=== PATIENT | female | born 2000 | race Caucasian/White ===

== ENCOUNTER 2024-09-24 00:05 | Emergency (ER) | payer OTHER, SELFPAY ==
--- NOTE | ~2024-09-24 | CT_ITS ---
CLINICAL HISTORY: fall, ?HS, ETOH CT head without contrast Comparison: None Findings: No acute intracranial hemorrhage. No midline shift or hydrocephalus. No large arterial territorial infarction by CT. Metal artifact from left nasal piercing. Imaged paranasal sinuses and imaged mastoid air cells are well aerated. No acute skull fracture. IMPRESSION: 1. No acute intracranial abnormality by CT. This document has been electronically signed by: Sunny Ayala MD on 09/24/2024 02:42:45
[2024-09-24 00:13] VITALS: BP 124/86; BP 126/70; PULSE 70; PULSE 72; RESP 16; TEMP 36.5; O2SAT 100; BMI 34.0
--- NOTE | 2024-09-24 00:17 | ECG_ITS ---
Test Reason : ETOH/ ? SYNCOPE Blood Pressure : */* mmHG Vent. Rate : 62 BPM Atrial Rate : 62 BPM P-R Int : 136 ms QRS Dur : 80 ms QT Int : 406 ms P-R-T Axes : 54 37 21 degrees QTcB Int : 412 ms Normal sinus rhythm Normal ECG No previous ECGs available Referred By: Sil Valdez Electronically Signed By: LATONIA DARBY MD
--- NOTE | 2024-09-24 00:18 | ED.ALCOHOL ---
HPI - Alcohol General Chief Complaint: ETOH/Substance Use Stated Complaint: ETOH USE,NAUSEA,H/O CONGENITAL ADRENAL HYPERPLAGIA Time Seen by Provider: 09/24/24 00:08 Source: patient Mode of arrival: ambulatory Limitations: no limitations History of Present Illness ED Provider: rosario jack manpower development specialist manager HPI narrative: Patient is a 24-year-old female who presents to the emergency department via EMS for evaluation. She endorses alcohol use ice 7 beers which is quite a bit for her, complaining of nausea and stomach upset. Evidently boyfriend called 911 as she had fallen from the toilet, uncertain whether there was any head strike syncope. She states ?I just drank way too much?. Evidently boyfriend told EMS that she has drank similar amounts in the past but was concerned as patient has a bit lethargic and more difficult to arouse then he would anticipate. Reports history of congenital adrenal hyperplasia did not take her prednisone today. Related Data Allergies Allergy/AdvReac Type Severity Reaction Status Date / Time No Known Allergies Allergy Verified 09/24/24 00:16 Review of Systems Review of Systems: Yes all other systems are reviewed and are negative [facility] Past Medical History Attestation statement: The following information was validated with the patient. Source: old records reviewed Social History Social History Advance Directives: No Advance Directives Information Provided: Yes Physical Exam ED Vital Signs: Vital Signs - 24 hr 09/24/24 00:13 Temperature 97.7 F Pulse Rate 72 Respiratory Rate 16 Blood Pressure 124/86 Pulse Oximetry 100 Oxygen Delivery Method Room Air BMI result Body Mass Index 34.0 Appearance: Alert.?Oriented to person, place and time. No acute distress.?Normal affect. Head: Normocephalic, atraumatic Eyes: Pupils equal, round and reactive to light.? EOMI. No nystagmus. ENT: Pharynx normal.?? Neck: Normal inspection.? Neck supple.??Full range of motion. No midline cervical spine tenderness, step-offs, deformities CVS: Heart sounds normal. Normal heart rate and rhythm.? Pulses normal.?? Respiratory: No respiratory distress.? Lung sounds clear to auscultation bilaterally?? Abdomen: Soft and non-tender. Normoactive bowel sounds. Skin: Skin warm and dry.? Normal skin color.? ? Extremities: No lower extremity edema.? Neuro: Moves all extremities spontaneously. Sensation intact bilaterally. CN II-XII intact. No focal neuro deficits. Ambulates with slow steady gait. Course Reevaluation(s) Reevaluation #1: CBC reveals a mild leukocytosis of 13,000 no left shift likely reactive in nature no anemia or thrombocytopenia. No electrolyte derangement. No CORNELL. LFTs. high sensitive troponin is unremarkable. Alcohol level of 212. Head CT without acute pathology. She is ambulatory with a associated the gait. Answers questions appropriate. Her boyfriend is at bedside, he is agreeable to transport her home. We discussed worrisome signs and symptoms that would warrant re-evaluation in the emergency department. All questions answered. Stable for discharge Medical Decision Making Medical Decision Making [facility] Narrative: Patient is a 24-year-old female with past medical history of congenital adrenal hyperplasia who presents emergency department via EMS with expressed concern from significant other for potential fall versus syncope in the bathroom from the toilet with the uncertainty of head strike. Patient is acutely intoxicated but she is answering questions appropriately. Reports stomach upset offers no additional physical complaints at this time. She is calm and cooperative. Vital signs are stable. No hypotension. Given ETOH and associated fall obtain CT of the head to exclude ICH, SDH, skull fracture. I suspect that this is likely secondary to her alcohol intoxication, however will obtain serum labs in addition to EKG to evaluate for potential arrhythmia, anemia, electrolyte derangement. Differential Diagnosis Differential Diagnoses: The differential diagnosis associated with the presentation includes (See narrative above and below for further detail) Admission/Observation Consideration of admission/observation: Escalation of care including admission/observation considered Lab Data [facility] Lab Attestation statement: I reviewed the patient's lab results. 09/24/24 00:37 09/24/24 00:37 Labs: Lab Results 09/24/24 Range/Units 00:37 WBC 13.0 H (4.8-10.8) X10*3/uL RBC 4.27 (4.20-5.50) X10*6/uL Hgb 13.0 (12.0-16.0) g/dl Hct 38.3 (37.0-47.0) % MCV 89.7 (80.0-98.0) fL MCH 30.4 (27.0-33.0) pg MCHC 33.9 (31.0-35.0) g/dl RDW 12.3 (11.0-16.0) % Plt Count 325 (160-400) X10*3/uL MPV 10.0 (9.4-12.3) fL Immature Gran % (Auto) 0.2 (0.0-0.4) % Neut % (Auto) 57.0 (45-73) % Lymph % (Auto) 33.9 (20-40) % Woods % (Auto) 7.6 (2-11) % Eos % (Auto) 0.9 (0-4) % Baso % (Auto) 0.4 (0-2) % Lymph # (Auto) 4.4 (1.2-4.9) X10*3/uL Woods # (Auto) 1.0 (0.1-1.2) X10*3/uL Eos # (Auto) 0.1 (0.0-0.4) X10*3/uL Baso # (Auto) 0.1 (0.0-0.2) X10*3/uL Abs Immat Gran (auto) 0.03 (0.00-0.03) X10*3/uL Absolute Neuts (auto) 7.4 (2.0-8.3) x10*3/uL Absolute Nucleated RBC 0.000 (0.0-0.012) X10*3/uL Nucleated RBC % (auto) 0.0 (0.0-0.2) /100WBC Sodium 141 (135-145) mmol/L Potassium 3.5 (3.3-5.1) mmol/L Chloride 105 (96-108) mmol/L Carbon Dioxide 27 (22-29) mmol/L Anion Gap 13 (12-20) BUN 7 L (9-16) mg/dL Creatinine 0.61 (0.5-1.4) mg/dL Estim Creat Clear Calc 135.3 Estimated GFR > 60 Random Glucose 101 (60-115) mg/dL Calcium 8.6 (8.4-10.2) mg/dL Magnesium 2.2 (1.6-2.6) mg/dL Total Bilirubin 0.2 (0.0-1.0) mg/dL AST 23 (5-31) U/L ALT 20 (0-31) U/L Alkaline Phosphatase 69 (39-117) U/L Troponin I High Sens < 2.7 (<3.5-17.0) ng/L Total Protein 7.1 (6.5-8.0) g/dL Albumin 4.2 (3.5-5.0) g/dL Lipase 23 (8-78) U/L Ethyl Alcohol 212 mg/dL Independent Interpretation I performed an independent interpretation of an: EKG (EKG revealing normal sinus rhythm with ventricular rate of 62, normal CAITLIN, QTC 412, no ST-elevation) Radiology Impression Discussion of test interpretation with radiology: I have reviewed the radiologist's reading. Radiologist Impression: CT head without contrast Comparison: None Findings: No acute intracranial hemorrhage. No midline shift or hydrocephalus. No large arterial territorial infarction by CT. Metal artifact from left nasal piercing. Imaged paranasal sinuses and imaged mastoid air cells are well aerated. No acute skull fracture. IMPRESSION: 1. No acute intracranial abnormality by CT. Independent Historian Clinical information obtained from an independent historian. History obtained from or confirmed by: EMS Chronic Conditions Patient?s care impacted by: Other (See narrative above) Medications Administered Discontinued Medications Generic Name Dose Route Start Last Admin Trade Name Freq PRN Reason Stop Dose Admin Famotidine 20 mg 09/24/24 00:16 09/24/24 01:05 Famotidine/Pf 20 Mg/2 Ml Vial IVPUSH 09/24/24 00:17 20 mg ONCE ONE Administration Sodium Chloride 1,000 mls @ 999 mls/hr 09/24/24 00:30 09/24/24 01:05 Ns IV 09/24/24 01:30 999 mls/hr .Q1H1M IAN Administration Ondansetron HCl 4 mg 09/24/24 00:16 09/24/24 01:05 Ondansetron Hcl 4 Mg/2 Ml Vial IVPUSH 09/24/24 00:17 4 mg ONCE ONE Administration Discharge Plan Discharge Clinical Impression: Alcoholic intoxication Patient Disposition: Home, Self-Care Instructions: Alcohol Intoxication (ED) Additional Instructions: You were evaluated in the emergency department after possibly falling while in the bathroom new setting of drinking alcohol. Your blood work today was overall reassuring. A CT scan of your head was obtained there was no evidence of injury or abnormality. This is reassuring. Consider refraining from alcohol usage. If you are drinking regularly on a consistent and/or daily basis consider slowly cutting back the mouth that you were drinking. Follow-up with your primary care doctor. Return to emergency department any new or worsening symptoms or concerns. Referrals: Physician,Unknown J [Primary Care Provider] - Print Language: Armenian
[2024-09-24 00:42] LABS: MANUAL DIFF FLAG NO
[2024-09-24 00:43] LABS: Basophils Absolute Auto 0.1 X10*3/uL (0.0-0.2); Basophils Percent Auto 0.4 % (0-2); Eosinophils Absolute Auto 0.1 X10*3/uL (0.0-0.4); Eosinophils Percent Auto 0.9 % (0-4); Hematocrit 38.3 % (37.0-47.0); Imm Gran Abs Auto 0.03 X10*3/uL (0.00-0.03); Imm Gran Pct Auto 0.2 % (0.0-0.4); Lymphocytes Absolute Auto 4.4 X10*3/uL (1.2-4.9); Lymphocytes Percent Auto 33.9 % (20-40); Mean Corpuscular HGB Conc 33.9 g/dl (31.0-35.0); Mean Corpuscular Hemoglobin 30.4 pg (27.0-33.0); Mean Corpuscular Volume 89.7 fL (80.0-98.0); Monocytes Percent Auto 7.6 % (2-11); Neutrophils Absolute Auto 7.4 x10*3/uL (2.0-8.3); Platelet Count 325 X10*3/uL (160-400); Red Blood Count 4.27 X10*6/uL (4.20-5.50); Red Cell Distribution Width 12.3 % (11.0-16.0)
[2024-09-24] MEDS: 0.9 % Sodium Chloride 1,000 ML 999 ML IV (01:05)
[2024-09-24] MEDS: Famotidine/PF 20 MG/2 ML VIAL IVPUSH (01:05)
[2024-09-24] MEDS: ondansetron HCL 4 MG/2 ML VIAL IVPUSH (01:05)
[2024-09-24 01:10] LABS: Troponin-I High Sensitivity < 2.7 ng/L (<3.5-17.0)
[2024-09-24 01:11] LABS: Alanine Aminotransferase 20 U/L (0-31); Albumin Level 4.2 g/dL (3.5-5.0); Alkaline Phosphatase 69 U/L (39-117); Anion Gap 13 (12-20); Aspartate Amino Transferase 23 U/L (5-31); Bilirubin Total 0.2 mg/dL (0.0-1.0); Blood Urea Nitrogen 7 mg/dL (9-16); Calcium 8.6 mg/dL (8.4-10.2); Carbon Dioxide 27 mmol/L (22-29); Chloride 105 mmol/L (96-108); Creatinine Clr Calc Pharmacy 135.3; Estimated Glomerular Filt Rate > 60; Ethanol 212 mg/dL; Glucose Random 101 mg/dL (60-115); Lipase 23 U/L (8-78); Magnesium 2.2 mg/dL (1.6-2.6); Potassium 3.5 mmol/L (3.3-5.1); Sodium 141 mmol/L (135-145); Total Protein 7.1 g/dL (6.5-8.0)
[2024-09-24 03:21] VITALS: BP 104/60; PULSE 104; RESP 18; TEMP 36.6; O2SAT 97
--- NOTE | 2024-09-24 03:30 | PC.NURSE ---
assumed care of pt at 0300. VSS Discharge summary and instructions given. pt verbalized understanding
[2024-09-24 03:31] VITALS: BP 104/60; PULSE 104; RESP 18; TEMP 36.6; O2SAT 97
== END 2024-09-24 03:32 | disposition home or self-care (01) ==
PROVIDERS: Nurse Practitioner Family; Emergency Provider Emergency Medicine
DX: F10.129 Alcohol abuse with intoxication, unspecified (principal); Y90.7 Blood alcohol level of 200-239 mg/100 ml; R11.0 Nausea
CPT/HCPCS: 36415; 70450; 80053; 80307; 83690; 83735; 84484; 85025; 93005; 96361; 96374; 96375; 99284; J1308; J2405

== ENCOUNTER → 2024-09-24 00:17 | Outpatient (BNV) | payer OTHER, SELFPAY | PROVIDERS: Emergency Provider Emergency Medicine; Visit Provider Internal Medicine Cardiovascular Disease | DX: F19.10 Other psychoactive substance abuse, uncomplicated (principal) | CPT/HCPCS: 93010 ==

== ENCOUNTER → 2024-09-24 00:18 | Outpatient (BNV) | payer OTHER, SELFPAY | PROVIDERS: Emergency Provider Emergency Medicine; Visit Provider Radiology Neuroradiology | DX: F10.129 Alcohol abuse with intoxication, unspecified (principal); W19.XXXA Unspecified fall, initial encounter | CPT/HCPCS: 70450 ==

== ENCOUNTER 2025-02-28 20:44 | Inpatient (IN) | payer OTHER, SELFPAY ==
--- NOTE | ~2025-02-28 | CT_ITS ---
CLINICAL HISTORY: Lower Abd Pain; r o Appy CT ABDOMEN AND PELVIS WITH CONTRAST COMPARISON: Pelvic and transvaginal ultrasound 03/01/2025. FINDINGS: Cystic multiseptated lesion is noted in the right aspect of the pelvis which is estimated to measure approximately 3.7 x 3.3 cm on axial image 495 of series 4. This is presumed to be ovarian in origin. Small amount of adjacent free fluid is noted. Additional small amounts of free fluid are noted in the pelvis, including a small amount of free fluid more inferiorly in the pelvis which measures above water density and is nonspecific. There is no pooling of contrast to suggest active bleeding. Uterus and left adnexa are are grossly unremarkable. No evidence of a bowel obstruction or free air. No pericolonic inflammation. No evidence of appendicitis. The lung bases are unremarkable. A fatty liver is suspected. No visible gallstone. No pericholecystic inflammation. Tiny hiatal hernia is suspected. Stomach is significantly underdistended which precludes accurate assessment. No CT evidence of acute pancreatitis. Spleen and adrenal glands are unremarkable. Both kidneys are unremarkable. No hydronephrosis or obstructing stone. Urinary bladder is mildly distended. Abdominal aorta is normal in caliber without evidence of an aneurysm or dissection. No lymphadenopathy. No evidence of a bowel containing hernia. The bone windows demonstrate no acute abnormalities. IMPRESSION: 1. There is a cystic multiseptated lesion in the right aspect of the pelvis which is estimated to measure 3.7 x 3.3 cm, with a small amount of adjacent free fluid. This is presumed to arise from the right ovary. This imaging appearance of this lesion is nonspecific, and the appearance is noted to be discordant when compared with the prior ultrasound study, in which the right ovary was noted to be enlarged and contained a 1.9 x 1.9 x 1.5 cm follicle. Pelvic MRI is recommended for further assessment. Consultation with OB-DIRECTOR OF CARDIAC CATH LAB is advised. 2. Additional small amounts of free fluid are noted in the pelvis, including a small amount of free fluid in the inferior aspect of the pelvis which measures above water density and is nonspecific. Blood byproducts or proteinaceous material/debris could potentially have this appearance. No pooling of contrast to suggest active bleeding. 3. Additional findings are detailed above. This document has been electronically signed by: Jeremiah Andrade M.D. on 03/01/2025 05:30:54
--- NOTE | ~2025-02-28 | MR_ITS ---
EXAMINATION: MR PELVIS WITHOUT THEN WITH IV CONTRAST HISTORY: Abnormal CT/US; ? Tubo-ovarian abscess. TECHNIQUE: Axial T1, fat-suppressed T1, and fat suppressed T2, and sagittal and coronal T2-weighted MR images of the pelvis were obtained. Subsequently, sagittal and axial fat-suppressed T1-weighted images were obtained after the intravenous administration of 7 mL Gadavist. COMPARISON: Correlation is made with pelvic CT and ultrasound examinations performed earlier in the day. FINDINGS: The uterus measures approximately 7.1 x 3.0 x 3.7 cm and is unremarkable. The junctional zone is not thickened. The endometrium is unremarkable. The cervical stroma is preserved. The right ovary is enlarged measuring 4.9 x 3.5 x 3.3 cm. Multiple follicles are noted. In addition, there is a multiseptated cystic lesion measuring 3.7 x 3.3 x 3.3 cm. There is peripheral and septal enhancement. Internal linear T2 hypointense and T1 hyperintense foci are seen which could represent hemorrhage. The left ovary measures 2.5 x 1.1 x 2.6 cm and demonstrates multiple follicles. There is a moderate amount of free fluid in the adnexa and cul-de-sac. No pelvic lymphadenopathy is identified. A normal appendix is visualized. The visualized bones demonstrate normal marrow signal intensity. MR/MR pelvis wo/w con IMPRESSION: Moderate amount of free fluid. 3.7 x 3.3 x 3.3 cm multiseptated cystic right ovarian lesion. MECHANICAL SERVICE SPECIALIST consultation is recommended. Electronically signed by: Sav Diop MD 03/01/2025 12:56 PM [facility] [place]
--- NOTE | ~2025-02-28 | US_ITS ---
CLINICAL HISTORY: Sudden Lower Abd Pain; r o Torsion PELVIC ULTRASOUND TRANSVAGINAL ULTRASOUND ULTRASOUND ABDOMEN VASCULAR COMPLETE COMPARISON: None provided. FINDINGS: The uterus is unremarkable without evidence of a fibroid. Uterus measures 7.8 x 2.5 x 3.9 cm. The endometrial stripe measures 6-7 mm in thickness on image 41. Grayscale, spectral Doppler, and color flow analysis of the bilateral ovaries was performed. There are arterial and venous waveforms in both ovaries. Please note that ovarian torsion is a clinical diagnosis, regardless of the imaging findings. Right ovary is estimated to measure 4.8 x 2.9 x 3.8 cm by my measurements. Estimated right ovarian volume is approximately 27.7 mL. A right ovarian follicle is estimated to measure 1.9 x 1.9 x 1.5 cm. The left ovary measures 3.0 x 1.3 x 2.3 cm and is unremarkable. Estimated left ovarian volume is approximately 4.7 mL. Small amount of free fluid is noted adjacent to the right ovary. This contains some nonspecific internal echoes. No loculated fluid collection. IMPRESSION: 1. Enlarged right ovary containing a follicle which is estimated to measure approximately 1.9 x 1.9 x 1.5 cm. 2. Small amount of free fluid is noted adjacent to the right ovary. This contains some nonspecific internal echoes. No loculated fluid collection. 3. Arterial and venous waveforms are noted within the bilateral ovaries. Please note that ovarian torsion is a clinical diagnosis, regardless of the imaging findings. If there remains concern for torsion, consultation with OB-SALESPERSON FASHION ACCESSORIES would be advised. This document has been electronically signed by: Jeremiah Andrade M.D. on 03/01/2025 02:21:44
--- NOTE | ~2025-02-28 | US_ITS ---
CLINICAL HISTORY: Sudden Lower Abd Pain; r o Torsion PELVIC ULTRASOUND TRANSVAGINAL ULTRASOUND ULTRASOUND ABDOMEN VASCULAR COMPLETE COMPARISON: None provided. FINDINGS: The uterus is unremarkable without evidence of a fibroid. Uterus measures 7.8 x 2.5 x 3.9 cm. The endometrial stripe measures 6-7 mm in thickness on image 41. Grayscale, spectral Doppler, and color flow analysis of the bilateral ovaries was performed. There are arterial and venous waveforms in both ovaries. Please note that ovarian torsion is a clinical diagnosis, regardless of the imaging findings. Right ovary is estimated to measure 4.8 x 2.9 x 3.8 cm by my measurements. Estimated right ovarian volume is approximately 27.7 mL. A right ovarian follicle is estimated to measure 1.9 x 1.9 x 1.5 cm. The left ovary measures 3.0 x 1.3 x 2.3 cm and is unremarkable. Estimated left ovarian volume is approximately 4.7 mL. Small amount of free fluid is noted adjacent to the right ovary. This contains some nonspecific internal echoes. No loculated fluid collection. IMPRESSION: 1. Enlarged right ovary containing a follicle which is estimated to measure approximately 1.9 x 1.9 x 1.5 cm. 2. Small amount of free fluid is noted adjacent to the right ovary. This contains some nonspecific internal echoes. No loculated fluid collection. 3. Arterial and venous waveforms are noted within the bilateral ovaries. Please note that ovarian torsion is a clinical diagnosis, regardless of the imaging findings. If there remains concern for torsion, consultation with OB-LIE DETECTOR OPERATOR would be advised. This document has been electronically signed by: Jeremiah Andrade M.D. on 03/01/2025 02:21:44
[2025-02-28 20:51] VITALS: BP 100/80; PULSE 80
[2025-02-28 20:55] VITALS: BP 134/70; PULSE 104; RESP 16; TEMP 36.7; O2SAT 97; BMI 31.2
--- OUTSIDE RECORDS SUMMARY | 2025-02-28 21:01 | XMS_ITS ---
Author Name [facility] Organization Unknown Care Team Organization Name Specialty Phone Email Start Date End Da te [facility] Termed, PROVIDER Primary Care 03/03/202211/24
[2025-02-28 21:22] VITALS: BP 134/70; PULSE 104; RESP 16; TEMP 36.7; O2SAT 97
[2025-02-28 21:23] LABS: MANUAL DIFF FLAG NO
[2025-02-28 21:25] LABS: Appearance Urine Clear; Glucose Urine UA Negative (Negative); PH 6.0 (5.0-9.0); Specific Gravity - Urine 1.020 (1.005-1.025); UMIC TRIGGER UACC YES
[2025-02-28 21:42] LABS: Alanine Aminotransferase 26 U/L (0-31); Albumin Level 4.3 g/dL (3.5-5.0); Alkaline Phosphatase 90 U/L (39-117); Anion Gap 12 (12-20); Aspartate Amino Transferase 24 U/L (5-31); Blood Urea Nitrogen 10 mg/dL (9-16); Calcium 9.4 mg/dL (8.4-10.2); Carbon Dioxide 24 mmol/L (22-29); Chloride 108 mmol/L (96-108); Creatinine Clr Calc Pharmacy 119.5; Estimated Glomerular Filt Rate > 60; Potassium 4.0 mmol/L (3.3-5.1); Sodium 140 mmol/L (135-145); Total Protein 7.4 g/dL (6.5-8.0)
[2025-02-28 22:00] LABS: UACC Culture Trigger YES
[2025-02-28 22:52] LABS: Hematocrit 40.0 % (37.0-47.0); Hemoglobin 13.4 g/dl (12.0-16.0); Imm Gran Abs Auto 0.08 X10*3/uL (0.00-0.03); Imm Gran Pct Auto 0.5 % (0.0-0.4); Lymphocytes Absolute Auto 2.6 X10*3/uL (1.2-4.9); Mean Corpuscular HGB Conc 33.5 g/dl (31.0-35.0); Mean Corpuscular Hemoglobin 29.6 pg (27.0-33.0); Mean Corpuscular Volume 88.3 fL (80.0-98.0); NRBC Abs Auto 0.000 X10*3/uL (0.0-0.012); NRBC Pct Auto 0.0 /100WBC (0.0-0.2); Platelet Count 359 X10*3/uL (160-400); Red Blood Count 4.53 X10*6/uL (4.20-5.50); White Blood Count 16.1 X10*3/uL (4.8-10.8)
--- NOTE | 2025-02-28 23:00 | PC.NURSE ---
Attempted to call pharmacy for abx, no answer on telephone, will pass along to oncoming RN
--- NOTE | 2025-02-28 23:25 | PC.NURSE ---
Took over care from Berny Young at 23:00, medicated per jun.
--- NOTE | 2025-02-28 23:42 | ED_ITS ---
HPI - Abdominal Pain General Chief Complaint: Abdominal Pain Stated Complaint: LOWER BACK PAIN Time Seen by Provider: 02/28/25 23:42 Source: patient Mode of arrival: ambulatory Limitations: no limitations History of Present Illness ED Provider: Raghav CARVER HPI narrative: The patient is a 24-year-old female presenting to the ED reporting at approximately 19:30 she was eating dinner when she developed rather sudden onset bilateral lower quadrant abdominal pain with associated nausea without associated fever/chills, vomiting, diarrhea, hematuria, hematochezia, melena, dysuria, frequency, urgency, or other acute complaint. The patient denies any irregular vaginal bleeding or vaginal discharge. The patient reports last menstrual period was between 02/02 and 02/12. Patient reports history of previous UTIs, reports this is not feel similar to previous UTI presentations. The patient denies history of nephrolithiasis. The patient reports she was sharing a meal with her fiance, fiance has no symptoms. The patient denies surgical abdominal history. Related Data Home Medications ?Medication ?Instructions ?Recorded ?Confirmed fludrocortisone 0.1 mg tablet 0.1 mg PO DAILY 03/01/25 03/01/25 prednisone 1 mg tablet 2.5 mg PO BEDTIME 03/01/25 1 05/01/24 prednisone 1 mg tablet 3 mg PO DAILY 03/01/2503/01 Allergies Allergy/AdvReac Type Severity Reaction Status Date / Time No Known Allergies Allergy Verified 02/28/25 20:56 Review of Systems Review of Systems Yes all other systems are reviewed and are negative PMFSH Social History Social History Smoked in Last 30 Days: Yes Use of substances other than those prescribed or required for medical reasons: Yes Substance Use Type: Marijuana Advance Directives: No Advance Directives Information Provided: Yes Patient : No Physical Exam ED Vital Signs: Vital Signs - 24 hr 02/28/25 20:55 02/28/25 21:22 03/01/25 01:25 Temperature 98.1 F 98.1 F 98.0 F Pulse Rate 104 H 104 H 96 Respiratory Rate 16 16 20 Blood Pressure 134/70 134/70 120/83 Pulse Oximetry 97 97 98 Oxygen Delivery Method Room Air Room Air Room Air 03/01/25 04:17 03/01/25 06:00 Temperature 98 F 97.8 F Pulse Rate 79 97 Respiratory Rate 18 18 Blood Pressure 131/95 H 118/81 Pulse Oximetry 98 97 Oxygen Delivery Method Room Air Room Air BMI result Body Mass Index 31.2 CONSTITUTIONAL: The patient appears non-toxic, well nourished and in no acute distress. Vital signs as documented. HEAD: Atraumatic, normocephalic. EYES: EOMs grossly intact, pupils equal, conjunctiva clear, no exudate. ENT: Nares patent, no discharge. Airway patent, no audible stridor, visible mucosa is pink and moist without noted lesions. NECK: Trachea is midline, no obvious masses or gross abnormalities. CHEST: Symmetric movement, normal appearance. LUNGS: LS present and CTAB, no w/r/r. Non-labored work of breathing. CARDIAC: Regular Rhythm, S1/S2 appreciated, no murmurs, rubs or gallops. ABDOMEN: Abdomen soft x4 quadrants, positive tenderness to palpation of the bilateral lower quadrants and suprapubic region, negative rebound, negative Rovsing's, no palpable masses or organomegaly. Equivocal CVAT bilaterally. : Deferred. EXTREMITIES: Normal tone, moves all extremities spontaneously without reported pain. No obvious acute injury or deformity noted. NEURO: Alert and oriented x3, CN II-XII appear grossly intact. Cerebellar Functioning grossly intact. No obvious sensory or motor deficits. Speech clear and appropriate. PSYCH: normal affect, appropriate eye contact, fluid speech, with appropriate response to questioning. No reported suicidality or homicidality. SKIN: Warm, dry, color appropriate, normal turgor. No rashes noted. Medical Decision Making Medical Decision Making MDM Narrative: 12:03 AM 03/01/2025 (Rocael CARVER): The patient is a 24-year-old female presenting to the ED reporting at approximately 19:30 she was eating dinner when she developed rather sudden onset bilateral lower quadrant abdominal pain with associated nausea without associated fever/chills, vomiting, diarrhea, hematuria, hematochezia, melena, dysuria, frequency, urgency, or other acute complaint. The patient denies any irregular vaginal bleeding or vaginal discharge. The patient reports last menstrual period was between 02/02 and 02/12. Patient reports history of previous UTIs, reports this is not feel similar to previous UTI presentations. The patient denies history of nephrolithiasis. The patient reports she was sharing a meal with her fiance, rafa has no symptoms. The patient denies surgical abdominal history. On exam the patient has tenderness to palpation of the bilateral lower quadrants and suprapubic region, negative rebound, negative Rovsing's. The patient has a equivocal bilateral CVAT. The patient's laboratory evaluation demonstrates leukocytosis of 16,000, with neutrophilia, no evidence of anemia, electrolyte abnormality, or CORNELL. Patient's LFTs are unremarkable. Patient's beta hCG is negative. The patient's urinalysis shows moderate leukocyte esterase, 6-10 WBCs, and trace bacteria, however is negative for nitrites or blood. The patient has been ordered for Macrobid prior to this provider's evaluation. Following evaluation, due to the sudden onset of the patient's symptoms, lack of urinary symptoms, patient report of symptoms being inconsistant with her previous UTIs, and lack of nitrites on urinalysis, UTI is less likely. Given the sudden onset of symptoms the patient will be evaluated with pelvic ultrasound to rule out torsion versus ruptured ovarian cyst. If unremarkable pelvic ultrasound the patient will be sent for CT abdomen and pelvis to rule out less likely nephrolithiasis versus acute intra-abdominal pathology. Of note patient was offered pain and nausea management which was declined. 2:27 AM 03/01/2025 (Rocael CARVER): Patient's ultrasound reveals a mildly enlarged right ovary with a follicle, with some periovarian fluid. No evidence of torsion. [place] [id number], we will obtain CT abdomen and pelvis to evaluate for other acute intra-abdominal pathology. 5:39 AM 03/01/2025 (Rocael CARVER): Patient's CT has resulted and shows a cystic multi septated lesion in the right aspect of the pelvis which is estimated to measure 3.7 x 3.3 cm with a small amount of adjacent free fluid. This is presumed to arise from the right ovary. This imaging appearance of this lesion is nonspecific in the appearances noted to be just accordingly when compared to the prior ultrasound study, which the right ovary was noted to be enlarged and contains a 1.9 x 1.9 x 1.5 cm follicle. Recommendation for pelvic MRI for further assessment. Consultation with OFFSET PLATE PREPARATION SUPERVISOR is advised. At this time we will perform a pelvic exam to evaluate for CMT, if there is significant CMT, in the setting of leukocytosis, the patient will be treated prophylactically for presumed TOA. If no CMT is noted, we will forgo antibiotics. Regardless of antibiotic initiation the patient will be signed out to oncoming provider for results of pelvic MRI as recommended. 5:57 AM 03/01/2025 (Rocael CARVER): Patient's pelvic exam was performed and revealed significant CMT, there was also opaque, brownish purulent cervical discharge noted, despite the patient's report of no vaginal discharge. In the setting of septated ovarian structure, with leukocytosis, purulent cervical discharge, and cervical motion tenderness, patient presentation is concerning for tubo-ovarian abscess. We will initiate IV antibiotics and plan for admission. Patient's case will be discussed with on-call OBGYN Dr. Peres to ensure appropriateness for admission locally. 6:24 AM 03/01/2025 (Rocael CARVER): Patient's case discussed with Dr. Peres who advises he will come see the patient at 07:15. Recommends delaying admission until after seen by Dr. Peres. Dr. Peres does request the MRI be ordered. Patient will be ordered for MRI and we will await consultation by Dr. Peres prior to admission bed request. 7:54 AM 03/01/2025 (Dr. Bertin Parikh): Dr. Peres be recommends MRI if MRI is negative for tubo-ovarian abscess patient can be managed for PID on outpatient basis and follow up in his office in 1 week, who recommends doxycycline and Flagyl twice daily for 2 weeks, patient has been updated. I did allow patient to eat after she was evaluated by a surgeon 1:34 PM 03/01/2025 (Dr. Bertin Praikh): I reached out to Dr. Peres with MRI report a COVID to make sure that he is still comfortable with plan of outpatient follow up and antibiotics 1:43 PM 03/01/2025 (Dr. Bertin Parikh): Dr. Peres be what admit to get in touch with reading radiologist for more specific reading regarding whether this is an abscess or not, I sent a tiger text to Dr. Diop 1:55 PM 03/01/2025 (Dr. Bertin Parikh): MRI is still inconclusive, wafer slicer would like the patient to be admitted to hospitalist service, he will place a consult Admission/Observation Consideration of admission/observation: Escalation of care including admission/observation considered Lab Data MDM Lab Attestation statement: I reviewed the patient's lab results. 02/28/25 21:19 02/28/25 21:19 Labs: Lab Results 02/28/25 03/01/25 03/01/25 Range/Units 21:19 05:58 06:03 WBC 16.1 H (4.8-10.8) X10*3/uL RBC 4.53 (4.20-5.50) X10*6/uL Hgb 13.4 (12.0-16.0) g/dl Hct 40.0 (37.0-47.0) % MCV 88.3 (80.0-98.0) fL MCH 29.6 (27.0-33.0) pg MCHC 33.5 (31.0-35.0) g/dl RDW 12.2 (11.0-16.0) % Plt Count 359 (160-400) X10*3/uL MPV 11.0 (9.4-12.3) fL Immature Gran % (Auto) 0.5 H (0.0-0.4) % Neut % (Auto) 74.5 H (45-73) % Lymph % (Auto) 16.2 L (20-40) % [place] % (Auto) 7.9 (2-11) % Eos % (Auto) 0.5 (0-4) % Baso % (Auto) 0.4 (0-2) % Lymph # (Auto) 2.6 (1.2-4.9) X10*3/uL [place] # (Auto) 1.3 H (0.1-1.2) X10*3/uL Eos # (Auto) 0.1 (0.0-0.4) X10*3/uL Baso # (Auto) 0.1 (0.0-0.2) X10*3/uL Abs Immat Gran (auto) 0.08 H (0.00-0.03) X10*3/uL Absolute Neuts (auto) 12.0 H (2.0-8.3) x10*3/uL Absolute Nucleated RBC 0.000 (0.0-0.012) X10*3/uL Nucleated RBC % (auto) 0.0 (0.0-0.2) /100WBC Sodium 140 (135-145) mmol/L Potassium 4.0 (3.3-5.1) mmol/L Chloride 108 (96-108) mmol/L Carbon Dioxide 24 (22-29) mmol/L Anion Gap 12 (12-20) BUN 10 (9-16) mg/dL Creatinine 0.66 (0.5-1.4) mg/dL Estim Creat Clear Calc 119.5 Estimated GFR > 60 Random Glucose 94 (60-115) mg/dL Lactic Acid 0.8 (0.5-2.0) mmol/L Calcium 9.4 D (8.4-10.2) mg/dL Total Bilirubin 0.3 (0.0-1.0) mg/dL AST 24 (5-31) U/L ALT 26 (0-31) U/L Alkaline Phosphatase 90 (39-117) U/L Total Protein 7.4 (6.5-8.0) g/dL Albumin 4.3 (3.5-5.0) g/dL Beta HCG, Quant < 2 mIU/mL Urine Color Yellow Urine Appearance Clear Urine pH 6.0 (5.0-9.0) Ur Specific [place] 1.020 (1.005-1.025) Urine Protein Negative (Neg-Trace) mg/dL Urine Glucose (UA) Negative (Negative) mg/dL Urine Ketones Trace (Negative) mg/dL Urine Blood Negative (Negative) Urine Nitrite Negative (Negative) Ur Leukocyte Esterase Moderate (2+) H (Negative) Urine RBC 0-2 (0-2) /HPF Urine WBC 6-10 H (0-5) /HPF Ur Squamous Epith Cells 0-2 (0-2) /HPF Urine Bacteria Trace (None Seen) Hyaline Casts 0-2 (0-2) /LPF Chlam trachomat DNA PCR NOT DETECTED (Not Detect.) N.gonorrhoeae DNA (PCR) NOT DETECTED (Not Detect.) T. vaginalis (PCR) NOT DETECTED (Not Detect) Bact vaginosis (PCR) NEGATIVE (Negative) C. krusei/glabrata (PCR) NOT DETECTED (Not Detect) Nayely group (PCR) NOT DETECTED (Not Detect) Radiology Impression Discussion of test interpretation with radiology: I have reviewed the radiologist's reading. Radiologist Impression: PELVIC ULTRASOUND TRANSVAGINAL ULTRASOUND ULTRASOUND ABDOMEN VASCULAR COMPLETE COMPARISON: None provided. FINDINGS: The uterus is unremarkable without evidence of a fibroid. Uterus measures 7.8 x 2.5 x 3.9 cm. The endometrial stripe measures 6-7 mm in thickness on image 41. Grayscale, spectral Doppler, and color flow analysis of the bilateral ovaries was performed. There are arterial and venous waveforms in both ovaries. Please note that ovarian torsion is a clinical diagnosis, regardless of the imaging findings. Right ovary is estimated to measure 4.8 x 2.9 x 3.8 cm by my measurements. Estimated right ovarian volume is approximately 27.7 mL. A right ovarian follicle is estimated to measure 1.9 x 1.9 x 1.5 cm. The left ovary measures 3.0 x 1.3 x 2.3 cm and is unremarkable. Estimated left ovarian volume is approximately 4.7 mL. Small amount of free fluid is noted adjacent to the right ovary. This contains some nonspecific internal echoes. No loculated fluid collection. IMPRESSION: 1. Enlarged right ovary containing a follicle which is estimated to measure approximately 1.9 x 1.9 x 1.5 cm. 2. Small amount of free fluid is noted adjacent to the right ovary. This contains some nonspecific internal echoes. No loculated fluid collection. 3. Arterial and venous waveforms are noted within the bilateral ovaries. Please note that ovarian torsion is a clinical diagnosis, regardless of the imaging findings. If there remains concern for torsion, consultation with OB-COPY CHIEF would be advised. This document has been electronically signed by: Jeremiah Andrade M.D. on 03/01/2025 02:21:44 Reason for Exam: Lower Abd Pain; r/o Appy CLINICAL HISTORY: Lower Abd Pain; r o Appy CT ABDOMEN AND PELVIS WITH CONTRAST COMPARISON: Pelvic and transvaginal ultrasound 03/01/2025. FINDINGS: Cystic multiseptated lesion is noted in the right aspect of the pelvis which is estimated to measure approximately 3.7 x 3.3 cm on axial image 495 of series 4. This is presumed to be ovarian in origin. Small amount of adjacent free fluid is noted. Additional small amounts of free fluid are noted in the pelvis, including a small amount of free fluid more inferiorly in the pelvis which measures above water density and is nonspecific. There is no pooling of contrast to suggest active bleeding. Uterus and left adnexa are are grossly unremarkable. No evidence of a bowel obstruction or free air. No pericolonic inflammation. No evidence of appendicitis. The lung bases are unremarkable. A fatty liver is suspected. No visible gallstone. No pericholecystic inflammation. Tiny hiatal hernia is suspected. Stomach is significantly underdistended which precludes accurate assessment. No CT evidence of acute pancreatitis. Spleen and adrenal glands are unremarkable. Both kidneys are unremarkable. No hydronephrosis or obstructing stone. Urinary bladder is mildly distended. Abdominal aorta is normal in caliber without evidence of an aneurysm or dissection. No lymphadenopathy. No evidence of a bowel containing hernia. The bone windows demonstrate no acute abnormalities. IMPRESSION: 1. There is a cystic multiseptated lesion in the right aspect of the pelvis which is estimated to measure 3.7 x 3.3 cm, with a small amount of adjacent free fluid. This is presumed to arise from the right ovary. This imaging appearance of this lesion is nonspecific, and the appearance is noted to be discordant when compared with the prior ultrasound study, in which the right ovary was noted to be enlarged and contained a 1.9 x 1.9 x 1.5 cm follicle. Pelvic MRI is recommended for further assessment. Consultation with OB-COPY CHIEF is advised. 2. Additional small amounts of free fluid are noted in the pelvis, including a small amount of free fluid in the inferior aspect of the pelvis which measures above water density and is nonspecific. Blood byproducts or proteinaceous material/debris could potentially have this appearance. No pooling of contrast to suggest active bleeding. 3. Additional findings are detailed above. This document has been electronically signed by: Jeremiah Andrade M.D. on 03/01/2025 05:30:54 Medications Administered Discontinued Medications Generic Name Dose Route Start Last Admin Trade Name Freq PRN Reason Stop Dose Admin Gadobutrol 7.5 ml 03/01/25 12:30 03/01/25 12:30 Gadobutrol 7.5 Ml Vial IVPUSH 03/01/25 12:31 7 ml ONCE ONE Administration Sodium Chloride 1,000 mls @ 999 mls/hr 03/01/25 06:00 03/01/25 07:02 Ns IV 03/01/25 07:00 Infused .Q1H1M IAN Infusion Ceftriaxone Sodium 1 gm/ 50 mls @ 100 mls/hr 03/01/25 05:54 03/01/25 06:45 Sodium Chloride IV 03/01/25 06:23 Infused ONCE ONE Infusion Metronidazole 500 mg in 100 mls @ 100 mls/hr 03/01/25 05:54 03/01/25 07:52 Flagyl IV 03/01/25 06:53 Infused ONCE ONE Infusion Doxycycline Hyclate 100 mg/ 250 mls @ 166.67 mls/hr 03/01/25 05:54 03/01/25 09:29 Sodium Chloride IV 03/01/25 07:23 Infused ONCE ONE Infusion Iohexol 85 ml 03/01/25 03:36 03/01/25 03:36 Iohexol 350 Mg/Ml 100 Ml Infus..Btl IV 03/01/25 03:37 85 ml ONCE ONE Administration Morphine Sulfate 4 mg 03/01/25 05:50 03/01/25 06:00 Morphine Sulfate 4 Mg/Ml Cartridge IVPUSH 03/01/25 05:51 4 mg ONCE ONE Administration Protocol Nitrofurantoin Macrocrystals 100 mg 02/28/25 22:47 02/28/25 23:24 Nitrofurantoin Macrocrystal 50 Mg Capsule PO 02/28/25 22:48 100 mg ONCE ONE Administration Ondansetron HCl 4 mg 03/01/25 08:44 03/01/25 08:53 Ondansetron Hcl 4 Mg/2 Ml Vial IVPUSH 03/01/25 08:45 Not Given ONCE ONE Discharge Plan Discharge Clinical Impression: Acute pelvic inflammatory disease (PID), Tubo-ovarian abscess Patient Disposition: Admitted As Inpatient
[2025-03-01 01:25] VITALS: BP 120/83; PULSE 96; RESP 20; TEMP 36.7; O2SAT 98
[2025-03-01] MEDS: iohexoL 350 MG/ML 100 ML INFUS..BTL 85 ML IV (03:36)
--- NOTE | 2025-03-01 03:39 | PC.NURSE ---
pt back from CT Scan.
[2025-03-01 04:17] VITALS: BP 131/95; PULSE 79; RESP 18; TEMP 36.6; O2SAT 98
--- NOTE | 2025-03-01 05:47 | PC.NURSE ---
provider into due a pelvic exam with Tatiana Financial Recruiter at the bedside.
[2025-03-01 06:00] VITALS: BP 118/81; PULSE 97; RESP 18; TEMP 36.6; O2SAT 97
[2025-03-01] MEDS: metroNIDAZOLE/NS 500 MG/100 ML PIGGYBACK 100 MG IV (06:46)
[2025-03-01 07:16] LABS: Bacterial Vaginosis PCR NEGATIVE (Negative); Candida Group PCR NOT DETECTED (Not Detect); Candida glab krusei PCR NOT DETECTED (Not Detect); Trichomonas vaginalis PCR NOT DETECTED (Not Detect)
--- NOTE | 2025-03-01 07:42 | P.CONOB_ITS ---
HIGHER EDUCATION ADMINISTRATOR - CN: HPI Data of Consult Consult date: 03/01/25 Primary Care Provider: [facility] Consult Narrative Narrative: I was consulted on Negar Hope is a 24 year old female who presented to emergency room after acute sudden onset of pelvic pain last night no associated fever or chills no vaginal discharge or bleeding no nausea or vomiting. Workup in the emergency room included the following: White blood cells 16.1, H&H= 13.4/40 Lactic acid 0.8 , hCG less than 2 GC/CT BV panel negative Pelvic ultrasound showed the following: IMPRESSION: 1. Enlarged right ovary containing a follicle which is estimated to measure approximately 1.9 x 1.9 x 1.5 cm. 2. Small amount of free fluid is noted adjacent to the right ovary. This contains some nonspecific internal echoes. No loculated fluid collection. 3. Arterial and venous waveforms are noted within the bilateral ovaries. Please note that ovarian torsion is a clinical diagnosis, regardless of the imaging findings. If there remains concern for torsion, consultation with OB-HIGHER EDUCATION ADMINISTRATOR would be advised. CT scan showed the following: IMPRESSION: 1. There is a cystic multiseptated lesion in the right aspect of the pelvis which is estimated to measure 3.7 x 3.3 cm, with a small amount of adjacent free fluid. This is presumed to arise from the right ovary. This imaging appearance of this lesion is nonspecific, and the appearance is noted to be discordant when compared with the prior ultrasound study, in which the right ovary was noted to be enlarged and contained a 1.9 x 1.9 x 1.5 cm follicle. Pelvic MRI is recommended for further assessment. Consultation with OB-HIGHER EDUCATION ADMINISTRATOR is advised. 2. Additional small amounts of free fluid are noted in the pelvis, including a small amount of free fluid in the inferior aspect of the pelvis which measures above water density and is nonspecific. Blood byproducts or proteinaceous material/debris could potentially have this appearance. No pooling of contrast to suggest active bleeding. 3. Additional findings are detailed above. MRI of the pelvis showed the following: IMPRESSION: Moderate amount of free fluid. 3.7 x 3.3 x 3.3 cm multiseptated cystic right ovarian lesion. HIGHER EDUCATION ADMINISTRATOR consultation is recommended. Communication with Dr. Irving frank through Dr. Jasso, he stated that abscess can not be excluded cc:: CC: OB [facility] Social History Social History Smoked in Last 30 Days: Yes Use of substances other than those prescribed or required for medical reasons: Yes Substance Use Type: Marijuana Advance Directives: No Advance Directives Information Provided: Yes Patient : No Meds Allergies Allergy/AdvReac Type Severity Reaction Status Date / Time No Known Allergies Allergy Verified 02/28/25 20:56 HIGHER EDUCATION ADMINISTRATOR Physical Exam Vitals Vital signs: Temp Pulse Resp BP Pulse Ox O2 Del Method 97.8 F 97 18 118/81 97 Room Air 03/01/25 06:00 03/01/25 06:00 03/01/25 06:00 03/01/25 06:00 03/01/25 06:00 03/01/25 06:00 BMI result Body Mass Index 31.2 Abdomen Auscultation/Inspection/Palpation: Normal bowel sounds, Soft and Tenderness (Mild tenderness bilaterally, no guarding or rebound) Female Genitalia (Pelvic) Bladder/Urethra: Normal meatus Vulva: No lesions Vagina: Nontender and Abnormal discharge (Greenish discharge) Cervix: Cervical motion tenderness Uterus: Tender Adnexa/Parametria: Adnexal Tenderness: Bilateral HIGHER EDUCATION ADMINISTRATOR - Results Labs 02/28/25 21:19 02/28/25 21:19 Labs: Short CBC 02/28/25 Range/Units 21:19 WBC 16.1 H (4.8-10.8) X10*3/uL Hgb 13.4 (12.0-16.0) g/dl Hct 40.0 (37.0-47.0) % Plt Count 359 (160-400) X10*3/uL BMP 02/28/25 21:19 Sodium 140 Potassium 4.0 Chloride 108 Carbon Dioxide 24 BUN 10 Creatinine 0.66 Calcium 9.4 D Liver Function 02/28/25 Range/Units 21:19 Total Bilirubin 0.3 (0.0-1.0) mg/dL AST 24 (5-31) U/L ALT 26 (0-31) U/L Alkaline Phosphatase 90 (39-117) U/L Albumin 4.3 (3.5-5.0) g/dL Urine 02/28/25 Range/Units 21:19 Urine Color Yellow Urine Appearance Clear Urine pH 6.0 (5.0-9.0) Ur Specific [place] 1.020 (1.005-1.025) Urine Protein Negative (Neg-Trace) mg/dL Urine Glucose (UA) Negative (Negative) mg/dL Assessment and Plan (1) Acute pelvic inflammatory disease (PID): Status: Acute The patient has received a dose IV ceftriaxone and a dose of doxycycline with metronidazole MRI of the pelvis ordered, ovarian abscess can not be excluded , recommend [facility] regimen for parenteral therapy: Ceftriaxone 2 g IV Q 24 hours with doxycycline 100 mg p.o. or IV every 12 with metronidazole 500 mg p.o. or IV every 12 hours, till the patient improve clinically in 48-72 hours then discharge home on doxycycline 100 mg p.o. b.i.d. with Flagyl 500 mg p.o. b.i.d. for a total of 14 days, to be followed up as an outpatient within 1-2 weeks. In the event the patient does not progress or develop any of the following: Suspected sepsis , enlarging pelvic mass, new onset fever, persistent or worsening abdomino/pelvic tenderness after 48-72 hours of treatment with IV antibiotics, the patient might need minimally invasive abscess drainage through interventional radiology or surgical intervention. STD screen including hepatitis-B surface antigen, HIV, syphilis screen, hep C antibody to be ordered This note was generated with a voice recognition program. Some errors may have been overlooked during the review of this note. Sometimes these errors may affect the content or meaning of a given sentence. (2) Complex ovarian cyst: Status: Acute Discussed with the patient differential diagnosis of complex ovarian cyst including benign, premalignant or malignant pathology MRI ordered to rule out TOA follow-up complex ovarian cyst as an outpatient therapy. Instructions given the patient to schedule outpatient follow-up appointment within 1 week. If MRI shows possible TOA, see above recommendation for admission
[2025-03-01 07:47] LABS: CT PCR NOT DETECTED (Not Detect.); NG PCR NOT DETECTED (Not Detect.)
--- NOTE | 2025-03-01 08:27 | PC.NURSE ---
Patient is vomiting up breakfast. Will notify Dr. Parikh.
--- NOTE | 2025-03-01 11:46 | PC.NURSE ---
En route to MRI at this time. Escorted by ED Transport staff via wheelchair.
--- NOTE | 2025-03-01 12:30 | PC.NURSE ---
Patient returned from MRI at this time.
--- NOTE | 2025-03-01 13:57 | PHA.MEDREC ---
Addendum entered by Rosalina Martinez RPh 03/01/25 14:07: REVIEWED BY PHARMACIST Original Note: Pharmacy Consult ? Medication Reconciliation Pharmacy has completed the medication reconciliation. Spoke with pt and she confirmed her medications.
[2025-03-01 14:09] VITALS: BP 112/81; PULSE 82; RESP 18; TEMP 36.7; O2SAT 98
--- NOTE | 2025-03-01 14:32 | PC.NURSE ---
Patient to be admitted to Med/Surg unit, pending bed assignment. Report given by phone to DOE Larsen in [place]. Pt to be moved, pending transport.
--- NOTE | 2025-03-01 14:38 | P.HPHOSP_ITS ---
History of Present Illness Date of Service: 03/01/25 Chief Complaint: suprapubic pain 24F PMH congenital adrenal hyperplasia on chronic prednisone presented with 1 day of suprapubic pain. Pain started night prior to presentation with suprapubic tenderness 10, denies any fevers or chills. Does have some greenish discharge. In ED, CTA showed cystic multi septated lesion in the right aspect of the pelvis with small amount of adjacent free fluid appears to have arisen from right ovary. MRI showed enlarged right ovary containing a follicle estimated to be 1.9 cm small amount of free fluid. Was seen by gynecology recommended admission for pelvic inflammatory disease. Review of Systems 2 Review of Systems: Yes all other systems are reviewed and are negative [facility] Medical History (Updated 03/01/25 @ 14:41 by Cory Mckee MD) Congenital adrenal hyperplasia Social History Smoked in Last 30 Days: Yes Use of substances other than those prescribed or required for medical reasons: Yes Substance Use Type: Marijuana Advance Directives: No Advance Directives Information Provided: Yes Patient : No Meds Allergies Allergy/AdvReac Type Severity Reaction Status Date / Time No Known Allergies Allergy Verified 02/28/25 20:56 Active Medications: Current Medications Fludrocortisone Acetate (Fludrocortisone Acetate 0.1 Mg Tablet) 0.1 mg PO DAILY [facility] Doxycycline Hyclate 100 mg/ (Sodium Chloride) 250 mls @ 166.67 mls/hr IV Q12H [facility] Ceftriaxone Sodium 2 gm/ (Sodium Chloride) 50 mls @ 100 mls/hr IV Q24H [facility] Metronidazole (Flagyl) 500 mg in 100 mls @ 100 mls/hr IV Q12H [facility] Prednisone (Prednisone 20 Mg Tablet) 20 mg PO DAILY [facility] Home Medications ?Medication ?Instructions ?Recorded ?Confirmed ?Last Taken ?Type fludrocortisone 0.1 mg tablet 0.1 mg PO DAILY 03/01/25 03/01/25 02/28/25 History prednisone 1 mg tablet 2.5 mg PO BEDTIME 03/01/25 1 05/01/24 02/27/25 History prednisone 1 mg tablet 3 mg PO DAILY 03/01/2503/0102/28/25 History Physical Exam 2 Vital Signs and Narrative: Vital Signs: Last Vital Signs Temp 98.1 F 03/01/25 14:09 Pulse 82 03/01/25 14:09 Resp 18 03/01/25 14:09 BP 112/81 03/01/25 14:09 Pulse Ox 98 03/01/25 14:09 O2 Del Method Room Air 03/01/25 14:09 BMI result Body Mass Index 31.2 General: AO X 3, no acute distress Resp: CTA bilateral, no accessory muscles used CVS: S1,S2,RRR GI: soft, suprapubic tender, non distended Neuro: motor grossly intact, alert Psych: appropriate affect, appropriate insight Results Labs 02/28/25 21:19 02/28/25 21:19 Labs: Laboratory Results - last 24 hr 02/28/25 03/01/25 03/01/25 21:19 05:58 06:03 MCV 88.3 MCH 29.6 MCHC 33.5 RDW 12.2 Plt Count 359 MPV 11.0 Immature Gran % (Auto) 0.5 H Neut % (Auto) 74.5 H Lymph % (Auto) 16.2 L Arthur % (Auto) 7.9 Eos % (Auto) 0.5 Baso % (Auto) 0.4 Lymph # (Auto) 2.6 Arthur # (Auto) 1.3 H Eos # (Auto) 0.1 Baso # (Auto) 0.1 Abs Immat Gran (auto) 0.08 H Absolute Neuts (auto) 12.0 H Absolute Nucleated RBC 0.000 Nucleated RBC % (auto) 0.0 Anion Gap 12 Estim Creat Clear Calc 119.5 Estimated GFR > 60 Random Glucose 94 Lactic Acid 0.8 Calcium 9.4 D Total Bilirubin 0.3 AST 24 ALT 26 Alkaline Phosphatase 90 Total Protein 7.4 Albumin 4.3 Beta HCG, Quant < 2 Urine Color Yellow Urine Appearance Clear Urine pH 6.0 Ur Specific [place] 1.020 Urine Protein Negative Urine Glucose (UA) Negative Urine Ketones Trace Urine Blood Negative Urine Nitrite Negative Ur Leukocyte Esterase Moderate (2+) H Urine RBC 0-2 Urine WBC 6-10 H Ur Squamous Epith Cells 0-2 Urine Bacteria Trace Hyaline Casts 0-2 Chlam trachomat DNA PCR NOT DETECTED N.gonorrhoeae DNA (PCR) NOT DETECTED T. vaginalis (PCR) NOT DETECTED Bact vaginosis (PCR) NEGATIVE C. krusei/glabrata (PCR) NOT DETECTED Nayely group (PCR) NOT DETECTED Imaging Radiologist's Impressions: Impressions Pelvis MRI 03/01/25 11:57 IMPRESSION: Moderate amount of free fluid. 3.7 x 3.3 x 3.3 cm multiseptated cystic right ovarian lesion. HEALTH SAFETY MANAGER consultation is recommended. Electronically signed by: Sav Diop MD 03/01/2025 12:56 PM EST Assessment and Plan (1) Acute pelvic inflammatory disease (PID): Status: Acute Plan 24F PMH congenital adrenal hyperplasia on chronic prednisone presented with 1 day of suprapubic pain Sepsis (tachycardia and leukocytosis) due to pelvic inflammatory disease Fruit Checker appreciated IV ceftriaxone, doxy, Flagyl Follow up cultures and STD screen Congenital adrenal hyperplasia Continue fludrocortisone Increase prednisone to 20 mg daily for stress dosing Low risk for DVT, early ambulation Full code Give recommendations for 48-72 hours of IV antibiotics for pelvic inflammatory disease likely require at least 2 midnights inpatient Quality Stroke Does the patient have a stroke diagnosis?: No VTE Prior VTE?: No VTE Risk Level:: Medical - low VTE Device Contraindication: Treatment Not Indicated VTE Drug Contraindication: Treatment Not Indicated
[2025-03-01] MEDS: 0.9 % Sodium Chloride Flush 3 ML SYRINGE IVFLUSH ×2 (15:42→23:49)
[2025-03-01 16:03] VITALS: BMI 31.2
[2025-03-01 16:06] VITALS: BP 127/75; PULSE 78; RESP 18; TEMP 36.9; O2SAT 98
[2025-03-01 20:00] VITALS: BP 122/77; PULSE 100; RESP 18; TEMP 36.2; O2SAT 96
[2025-03-02 04:00] VITALS: BP 117/66; PULSE 80; RESP 18; TEMP 36.8; O2SAT 97
[2025-03-02] MEDS: metroNIDAZOLE/NS 500 MG/100 ML PIGGYBACK 100 MG IV ×2 (05:14→19:09)
[2025-03-02 06:14] LABS: Hematocrit 37.3 % (37.0-47.0); Hemoglobin 12.6 g/dl (12.0-16.0); Mean Corpuscular HGB Conc 33.8 g/dl (31.0-35.0); Mean Corpuscular Hemoglobin 29.6 pg (27.0-33.0); Mean Corpuscular Volume 87.6 fL (80.0-98.0); NRBC Abs Auto 0.000 X10*3/uL (0.0-0.012); NRBC Pct Auto 0.0 /100WBC (0.0-0.2); Platelet Count 325 X10*3/uL (160-400); Red Blood Count 4.26 X10*6/uL (4.20-5.50); White Blood Count 13.9 X10*3/uL (4.8-10.8)
[2025-03-02 06:34] LABS: Anion Gap 12 (12-20); Blood Urea Nitrogen 5 mg/dL (9-16); Calcium 9.0 mg/dL (8.4-10.2); Carbon Dioxide 25 mmol/L (22-29); Chloride 105 mmol/L (96-108); Creatinine Clr Calc Pharmacy 138.4; Estimated Glomerular Filt Rate > 60; Potassium 3.6 mmol/L (3.3-5.1); Sodium 138 mmol/L (135-145)
[2025-03-02 07:17] LABS: Syphilis Screen Nonreactive (Nonreactive)
[2025-03-02 07:30] LABS: HBS Num1 4.95 mIU/mL (0-7.99); HBc Num1 0.09 S/CO (0.00-0.79); HBsAGNum1 2.07 S/CO (0.00-0.99); HIV Num 1 11.16 S/CO (0.00-0.99); Hepatitis A Antibody IgM 0.14 Index (0-0.79); ~HepC Num1 0.12 S/CO (0.00-0.79); ~Hepatitis A Antibody IgM Nonreactive (Nonreactive); ~Hepatitis B Surface Antibody NONREACTIVE (Nonreactive); ~Hepatitis C Antibody Nonreactive (Nonreactive)
[2025-03-02 07:35] VITALS: BP 117/79; PULSE 68; RESP 12; TEMP 36.3; O2SAT 98
[2025-03-02 08:42] LABS: HBsAGNum2 Nonreactive; HBsAGNum3 Nonreactive; HIV Num 2 0.06 S/CO; HIV Num 3 0.05 S/CO; Hepatitis B Surface Antigen NEGATIVE (Negative)
[2025-03-02] MEDS: 0.9 % Sodium Chloride Flush 3 ML SYRINGE IVFLUSH ×3 (09:25→22:18)
--- NOTE | 2025-03-02 09:31 | HO.PM.IMPN ---
Subjective Subjective Date of Service: 03/02/25 Interval History: improving suprapubic tenderness Physical Exam Exam: Exam: General: AO X 3, no acute distress Resp: CTA bilateral, no accessory muscles used CVS: S1,S2,RRR GI: soft, non tender, non distended Neuro: motor grossly intact, alert Psych: appropriate affect, appropriate insight Vital Signs: Vital Signs: Last Vital Signs Temp 97.3 F 03/02/25 07:35 Pulse 68 03/02/25 07:35 Resp 12 03/02/25 07:35 BP 117/79 03/02/25 07:35 Pulse Ox 98 03/02/25 07:35 O2 Del Method Room Air 03/02/25 07:35 BMI result Body Mass Index 31.2 Objective Data Active Medications Acetaminophen (Acetaminophen 325 Mg Tablet) 650 mg PO Q6H PRN PRN Reason: Pain, Mild 1-3,fever,headache Calcium Carbonate (Calcium Carbonate 750 Mg Tab.Chew) 750 mg PO Q4H PRN PRN Reason: Heartburn Fludrocortisone Acetate (Fludrocortisone Acetate 0.1 Mg Tablet) 0.1 mg PO DAILY [facility] Last Admin: 03/02/25 09:17 Dose: 0.1 mg Documented By: BOO Doxycycline Hyclate 100 mg/ (Sodium Chloride) 250 mls @ 166.67 mls/hr IV Q12H [facility] Last Infusion: 03/02/25 08:19 Dose: Infused Documented By: BOO Ceftriaxone Sodium 2 gm/ (Sodium Chloride) 50 mls @ 100 mls/hr IV Q24H [facility] Last Admin: 03/02/25 09:25 Dose: 100 mls/hr Documented By: BOO Metronidazole (Flagyl) 500 mg in 100 mls @ 100 mls/hr IV Q12H [facility] Last Infusion: 03/02/25 06:16 Dose: Infused Documented By: SUE Magnesium Hydroxide (Milk Of Magnesia 30 Ml Oral.Susp) 30 ml PO DAILY PRN PRN Reason: Constipation Melatonin (Melatonin 3 Mg Tablet) 6 mg PO BEDTIME PRN PRN Reason: Insomnia Prednisone (Prednisone 20 Mg Tablet) 20 mg PO DAILY [facility] Last Admin: 03/02/25 09:17 Dose: 20 mg Documented By: BOO Sodium Chloride (0.9 % Sodium Chloride Flush 3 Ml Syringe) 3 ml IVFLUSH QSHIFT [facility] Last Admin: 03/02/25 09:25 Dose: 3 ml Documented By: BOO Labs 03/02/25 05:45 03/02/25 05:45 Labs: Laboratory Results - last 24 hr 03/01/25 03/02/25 15:17 05:45 MCV 87.6 MCH 29.6 MCHC 33.8 RDW 12.2 Plt Count 325 MPV 10.5 Absolute Nucleated RBC 0.000 Nucleated RBC % (auto) 0.0 Anion Gap 12 Estim Creat Clear Calc 138.4 Estimated GFR > 60 Random Glucose 91 Calcium 9.0 T.pallidum Ab (EIA) Nonreactive Hepatitis A IgM Ab Nonreactive Hep Bs Antigen Not Reportable Hep Bs Antigen (2) NEGATIVE Hep Bs Antibody NONREACTIVE Hep B Core Total Ab Nonreactive Hepatitis C Ab (EIA) Nonreactive HIV 1&2 Ab/P24 Ag 4thGn Nonreactive Microbiology Microbiology Results: Microbiology 03/01/25 05:59 Urine Culture - Final Urine clean catch - Clean Catch Midstream No growth. 03/01/25 06:11 Blood Culture - Preliminary Blood - Venous No growth after 24 hours. 03/01/25 06:03 Blood Culture - Preliminary Blood - Venous No growth after 24 hours. Assessment and Plan (1) Acute pelvic inflammatory disease (PID): Status: Acute Plan 24F PMH congenital adrenal hyperplasia on chronic prednisone presented with 1 day of suprapubic pain Sepsis (tachycardia and leukocytosis) due to pelvic inflammatory disease Director Radio News appreciated IV ceftriaxone, doxy, Flagyl Follow up cultures - no growth to date negative STD screen overall improving Congenital adrenal hyperplasia Continue fludrocortisone Increased prednisone to 20 mg daily for stress dosing Low risk for DVT, early ambulation Full code reason for continued hospitalization:plan for total 48 to 72hr iv abx due to PID Quality Stroke Does the patient have a stroke diagnosis?: No VTE Prior VTE?: No VTE Risk Level:: Medical - low VTE Device Contraindication: Treatment Not Indicated VTE Drug Contraindication: Treatment Not Indicated
--- NOTE | 2025-03-02 13:17 | MHC.CM.PN ---
PT REPORTS SHE LIVES WITH HER S/O AND IS INDEPENDENT WITH CARE SHE HAS NO SERVICES OR DME DECLINES A HCP PCP AT [facility] [place] DCP: HOME VIA PRIVATE TRANSPORT
[2025-03-02 15:39] VITALS: BP 132/76; PULSE 109; RESP 18; TEMP 36.3; O2SAT 97
--- NOTE | 2025-03-02 17:13 | PC.NURSE ---
Patient used call glez, patient reported she was feeling better and was wondering about getting discharge tonight. Reached out to Provider Rafi via [employer] regarding discharge for patient, provider stated he would recommend patient stay tonight to continue IV antibiotics with possible discharge tomorrow. Patient educated regarding this and agreed with staying tonight.
[2025-03-02 20:00] VITALS: BP 137/91; PULSE 107; RESP 18; TEMP 36.4; O2SAT 96
[2025-03-02 22:17] VITALS: BP 126/79; PULSE 78; RESP 18; O2SAT 98
[2025-03-03 03:42] VITALS: BP 128/67; PULSE 89; RESP 18; TEMP 36.3; O2SAT 94
[2025-03-03 05:17] LABS: Hematocrit 35.2 % (37.0-47.0); Hemoglobin 12.0 g/dl (12.0-16.0); Mean Corpuscular HGB Conc 34.1 g/dl (31.0-35.0); Mean Corpuscular Hemoglobin 29.6 pg (27.0-33.0); Mean Corpuscular Volume 86.9 fL (80.0-98.0); NRBC Abs Auto 0.000 X10*3/uL (0.0-0.012); NRBC Pct Auto 0.0 /100WBC (0.0-0.2); Platelet Count 310 X10*3/uL (160-400); Red Blood Count 4.05 X10*6/uL (4.20-5.50); White Blood Count 13.9 X10*3/uL (4.8-10.8)
[2025-03-03] MEDS: metroNIDAZOLE/NS 500 MG/100 ML PIGGYBACK 100 MG IV (05:21)
[2025-03-03 05:33] LABS: Anion Gap 11 (12-20); Blood Urea Nitrogen 6 mg/dL (9-16); Calcium 8.8 mg/dL (8.4-10.2); Carbon Dioxide 24 mmol/L (22-29); Chloride 108 mmol/L (96-108); Creatinine Clr Calc Pharmacy 127.2; Estimated Glomerular Filt Rate > 60; Potassium 3.9 mmol/L (3.3-5.1); Sodium 139 mmol/L (135-145)
[2025-03-03 08:00] VITALS: BP 104/67; PULSE 74; RESP 18; TEMP 36.4; O2SAT 96
[2025-03-03] MEDS: 0.9 % Sodium Chloride Flush 3 ML SYRINGE IVFLUSH (08:03)
--- NOTE | 2025-03-03 08:50 | P.DS_ITS ---
DS: Providers Provider Date of Service: 03/03/25 Date of admission: 03/01/25 14:07 Date of discharge: 03/03/25 Primary care physician: Lorena Lemus MD DS: Diagnosis Discharge Diagnosis (1) Acute pelvic inflammatory disease (PID): Status: Acute DS: Summary Hospital Course Hospital Course: from initial hpi: 24F PMH congenital adrenal hyperplasia on chronic prednisone presented with 1 day of suprapubic pain. Pain started night prior to presentation with suprapubic tenderness 10, denies any fevers or chills. Does have some greenish discharge. In ED, CTA showed cystic multi septated lesion in the right aspect of the pelvis with small amount of adjacent free fluid appears to have arisen from right ovary. MRI showed enlarged right ovary containing a follicle estimated to be 1.9 cm small amount of free fluid. Was seen by gynecology re commended admission for pelvic inflammatory disease. hospital course: Patient was admitted for sepsis due to pelvic inflammatory disease. Was seen by gynecology recommended ceftriaxone, doxycycline, Flagyl for 48-72 hours which was given, sepsis resolved patient's symptoms resolved. On discharge we will continue 12 more days of doxycycline and Flagyl. Cultures were negative, STD screen was negative. Patient will follow up with Gynecology as outpatient. For congenital adrenal hyperplasia she was continue fludrocortisone and prednisone was increased for stress dosing. Time Attestation Discharge Coordination Time (in mins): 34 Quality: Safe Use of Opioids Does Pt have an Active Cancer Diagnosis on the Problem List?: No Quality: Stroke Does the patient have a stroke diagnosis?: No Physical Exam Exam: Exam: General: AO X 3, no acute distress Resp: CTA bilateral, no accessory muscles used CVS: S1,S2,RRR GI: soft, non tender, non distended Neuro: motor grossly intact, alert Psych: appropriate affect, appropriate insight Vital Signs: Vital Signs: Last Vital Signs Temp 97.6 F 03/03/25 08:00 Pulse 74 03/03/25 08:00 Resp 18 03/03/25 08:00 BP 104/67 03/03/25 08:00 Pulse Ox 96 03/03/25 08:00 O2 Del Method Room Air 03/03/25 08:00 BMI result Body Mass Index 31.2 DS: Data Data Completed and Pending Labs on day of discharge: Laboratory Results - last 24 hr 03/03/25 05:05 WBC 13.9 H RBC 4.05 L Hgb 12.0 Hct 35.2 L MCV 86.9 MCH 29.6 MCHC 34.1 RDW 12.5 Plt Count 310 MPV 10.2 Absolute Nucleated RBC 0.000 Nucleated RBC % (auto) 0.0 Sodium 139 Potassium 3.9 Chloride 108 Carbon Dioxide 24 Anion Gap 11 L BUN 6 L Creatinine 0.62 Estim Creat Clear Calc 127.2 Estimated GFR > 60 Random Glucose 88 Calcium 8.8 Preliminary micro results at discharge 03/01/25 06:11 Blood Culture - Preliminary Blood - Venous No growth after 48 hours. 03/01/25 06:03 Blood Culture - Preliminary Blood - Venous No growth after 48 hours. Discharge Plan Discharge Anticipated Discharge Date/Time: 03/03/25 08:48 Patient Disposition: Home, Self-Care Discharge Diagnosis: sepsis, pid Referrals: Lorena Lemus MD [Primary Care Provider, Internal Medicine] - 1 Week Toni Peres MD [Physician, IT BUSINESS PROCESS ARCHITECT] - 1 week Problems: Acute pelvic inflammatory disease (PID); Tubo-ovarian abscess Discharge Medications: New doxycycline hyclate 100 mg capsule 100 mg PO BID Qty: 24 0RF metronidazole 500 mg tablet 500 mg PO BID Qty: 24 0RF Continued prednisone 1 mg tablet 2.5 mg PO BEDTIME prednisone 1 mg tablet 3 mg PO DAILY fludrocortisone 0.1 mg tablet 0.1 mg PO DAILY Discharge Orders: Discharge Order (Routine); Ordered 03/03/25 Ordered By: Cory Mckee Diet: Advance to usual diet Activity on Discharge: As tolerated Stand Alone Forms: Patient Portal Discharge page Print Language: Bulgarian Care Plan Goals: recovery Health Concerns: pid Plan of Treatment: 12 more days chandu mason Assessment: see above
--- NOTE | 2025-03-03 08:55 | MHC.CM.PN ---
PT CLEARED TO DC HOME TODAY WITH NO SERVICES PT TO ARRANGE TRANSPORT
== END 2025-03-03 09:50 | disposition home or self-care (01) | DRG 720 ==
LOC: HO.ED 23:46 → HO.EDOVER 03-01 14:09 → HO.S3 03-01 15:04
PROVIDERS: Emergency Medicine; Physician Assistant; Admitting Provider Physician Assistant Medical; Emergency Provider Emergency Medicine; PCP Internal Medicine; Visit Provider Internal Medicine
DX: A41.9 Sepsis, unspecified organism (principal); E25.0 Congenital adrenogenital disorders associated with enzyme deficiency; F17.210 Nicotine dependence, cigarettes, uncomplicated; N73.9 Female pelvic inflammatory disease, unspecified; N83.201 Unspecified ovarian cyst, right side; Z71.6 Tobacco abuse counseling; Z79.51 Long term (current) use of inhaled steroids; Z79.899 Other long term (current) drug therapy
CPT/HCPCS: 36415; 72197; 74177; 76830; 76856; 80048; 80053; 81001; 81515; 83605; 84702; 85025; 85027; 86704; 86706; 86709; 86780; 86803; 87040; 87086; 87340; 87389; 87491; 87591; 93975; 99221; 99285; A9585; J0696; J1271; J1836; J2270; Q9967

== ENCOUNTER → 2025-02-28 20:58 | Outpatient (BNV) | payer OTHER, SELFPAY | PROVIDERS: Emergency Provider Emergency Medicine; Visit Provider Obstetrics & Gynecology | DX: N73.0 Acute parametritis and pelvic cellulitis (principal); N83.299 Other ovarian cyst, unspecified side | CPT/HCPCS: 99222 ==

== ENCOUNTER → 2025-03-01 14:07 | Outpatient (BNV) | payer OTHER, SELFPAY | PROVIDERS: Admitting Provider Physician Assistant Medical; Emergency Provider Emergency Medicine; Visit Provider Internal Medicine | DX: N73.0 Acute parametritis and pelvic cellulitis (principal) | CPT/HCPCS: 99223; 99233 ==

== ENCOUNTER → 2025-03-01 | Outpatient (BNV) | payer OTHER, SELFPAY | PROVIDERS: Emergency Provider Emergency Medicine; Visit Provider Radiology Diagnostic Radiology | DX: N83.01 Follicular cyst of right ovary (principal); R10.30 Lower abdominal pain, unspecified; N94.89 Other specified conditions associated with female genital organs and menstrual cycle | CPT/HCPCS: 72197; 74177; 76830; 76856 ==

== ENCOUNTER 2025-03-08 09:56 | Outpatient (AMB) | payer OTHER, SELFPAY ==
--- NOTE | 2025-03-08 10:18 | A.OFFVIS_ITS ---
Vital Signs 03/08/25 10:21 Height 5 ft 1 in Weight 168 lb BMI 31.7 BP 116/68 Intake Visit Reasons: Follow up pid/per [place] [employer] Required: No Allergies No Known Allergies Allergy (Verified 03/08/25 10:22) Is last menstrual period known: Yes Last menstrual period: 02/07/25 HPI Comments Details: Presenting for follow-up after admission for PID possible TOA and complex right ovarian cyst The patient is taking metronidazole and doxycycline and is pain free no fever or chills [facility] Medical History Congenital adrenal hyperplasia Family History Maternal Grandmother HTN (hypertension) Maternal Grandfather Stomach cancer Social History Household Members: Significant Other Household Members Other:: partner Housing: House Do you presently have visiting nurse or other home services: No Alcohol intake: current Alcohol intake frequency: holidays/special occasions only Patient Tobacco Use Status: Current everyday Tobacco user Tobacco use type: Smokeless Tobacco e-Cigarette/Vaping Use: Currently Using Frequency of e-Cigarette/Vaping Use: daily Second Hand Smoke Exposure: No Substance Use Type: Marijuana service: No Current occupational status: employed Current occupation: [employer] Sexually active: Yes Sexual orientation: Straight/Heterosexual Gender identity: Female Female Reproductive History Menstrual Age of Menarche: 10 Duration of menses: 3-5 days Date of last menstrual period: 02/07/25 Total pregnancies: 1 Number of Living Children: 0 Physical Exam Vital Signs: Last Vital Signs BP 116/68 03/08/25 10:21 BMI result Body Mass Index 31.7 GI Palpation (GI): Soft to palpation and nontender Percussion: Yes normal to percussion Assessment & Plan Assessment & Plan (1) Complex ovarian cyst: Code(s): N83.299 - Other ovarian cyst, unspecified side Category: Medical Plan: Discussed with the patient the complex ovarian cyst by ultrasound. Discussed with the patient the Ultrasound findings, the main limitation of transvaginal ultrasonography alone as a diagnostic tool to distinguish benign from malignant masses relates to its lack of specificity and low positive predictive value for cancer. The differential diagnosis discussed with the patient includes the following but not limited to: benign and malignant gynecological and non-gynecological causes. Discussed with the patient options of treatment including laparoscopy ovarian cystectomy/oophorectomy vs. expectant management with repeat US in repeating pelvic US in 10 weeks from previous US. If the ovarian complex cyst is persistent larger and / or more complex looking, will refer to gynecologic Oncology. All pros, cons, risks and benefits of each approach were discussed with the patient including but not limited to a delay in the diagnosis and t reatment of ovarian cancer affecting the prognosis; The patient decided to go ahead with expectant management. Instructions given the patient to schedule a 3 months follow-up ultrasound appointment. All questions were answered & the patient verbalized understanding and agreed with the plan. (2) Acute pelvic inflammatory disease (PID): Code(s): N73.0 - Acute parametritis and pelvic cellulitis Category: Medical Plan: Recommended the patient to keep taking her antibiotics till the end of the prescribed course, and to call in case of recurrence of pelvic pain, fever of 100.4 nausea and vomiting. All questions answered, the patient verbalized understanding Orders: Orders US pelvic and transvaginal 10 Weeks N83.299 - Other ovarian cyst, unspecified side Coding Level of Care Code Est Pt Level 3 (87624) Diagnoses Complex ovarian cyst N83.299 Acute pelvic inflammatory disease (PID) N73.0
[2025-03-08 10:21] VITALS: BP 116/68; BMI 31.7
--- OUTSIDE RECORDS SUMMARY | 2025-03-08 11:50 | XMS_ITS | Clinical Summary ---
Author Organization [facility] [address] [place] [address] [place] [address] [place] [address] Phone Care Team Providers Care Ski Lift Operator Name Role Phone Lorena Lemus MD Primary Care Provider Allergies No known active allergies Medications FLUoxetine (PROzac) 40 mg capsule Take 1 capsule (40 mg total) by mouth 1 (one) time each day. 4 Active hydrocortisone 2.5 % ointment Apply sparingly to affected areas on face 2-3 times daily as needed. 9 Active hydrocortisone sod succinate (Solu-CORTEF) 100 mg recon soln injection Inject 100 mg into the shoulder, thigh, or buttocks. 3 Active montelukast (SINGULAIR) 10 mg tablet Take 1 tablet (10 mg total) by mouth. 0 Active triamcinolone (KENALOG) 0.1 % cream APPPLY CREAM TOPICALLY DAILY FROM NECK DOWN AFTER SHOWERS *(NOT TO BE USED ON FACE, MIX 80 GRAMS WITH CERAVE CREAM)* 1 Active predniSONE (DELTASONE) 1 mg tablet TAKE 3 TABLETS BY MOUTH IN THE MORNING AND 2 & 1/2 (TWO & ONE-HALF) TABLETS IN THE EVENING 540 tablet 1 5 Active fludrocortisone (FLORINEF) 0.1 mg tabletIndications: Congenital adrenogenital disorders associated with enzyme deficiency (CMS/HCC V24) Take 1 tablet by mouth once daily 90 tablet 1 5 Active Active Problems Problem Noted Date Diagnosed Date Congenital adrenal hyperplasia (CMS/HCC V24) Overview (01/17/2024): 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 Cuba 03/[address] Boo re: clitoral surgery 07/09 she feels she is fine,. Having some BTB I recommend she see LOG HANDLING EQUIPMENT OPERATOR Dr Cuba or here. 10/09: seen by pedi endocrine. Prednisone 4 mg/day. Fludrocortisone 0.1 mg. F/u 6 months 10/16/16 endocrinology continue same dose prednisone and fludrocortisone. This is stress dose in case of fever or surgery. Follow-up in a year 06/13 Endocrinology : doing well, no changes, FU 1 y 09/10/18 Endo: doing well no change. Fu 1 year. Repeat labs. 09/14/18 Labs: increased in 17 OHP, increased prednisone. Recheck labs 1 M Anxiety and depression 11/17/2023 Eczema 05/16/2018 Major depressive disorder, s jasmina episode, moderate (CMS/HCC V24, CMS/HCC V28) 09/27/2015 Suicide attempt (CMS/HCC V24, CMS/[facility] V28) 09/01 Overview (01/17/2024): Overdose of robitussin. Evaluated at [facility] ED, admitted inpatient psych Immunizations Immunization Administration Dates Next Due DTaP (Infanrix) 6wks to less than 7yo ,02/11/2000,02/17/1999,12/31,1998 KOnM-AYK-EVG (Pentacel) 2mo to less than 5yo 08/27/1999,02/17/1999,1998,10/18 HPV, Quadrivalent 08/21/2013,04/17/2013,02/14/20 13 Hepatitis A Pediatric (Havri x; Vaqta) 12mo to less than 19yo 12/30/2007,10/21/2004 Hepatitis B Pediatric (Enger ix B; Recombivax HB) to less than 20 yo 02/17/1999,1998,1998 IPV Inactivated polio (Ipol) 6wks and older 09/26/2002,08/27/1999,1998,10/18 Influenza trivalent, 0.5mL, preservative free (Fluarix; FluLaval; Fluzone) ages 6mo and older (Afluria) 3 years and older 02/03/2016,03/07/2014,02/02/2013,03/25,03/31/2007,02/22/2006,03/08/2003 MMR, measles mumps and rubel la Live (Priorix; M-M-R II) 12mo and older 04/25/2000,08/27/1999 Meningococcal MCV4P 07/11/2015,02/13/2013 Td Tetanus diptheria (Tdvax) 7yo and older 05/26/2021 Tdap Tetanus diptheria acell ular pertussis (Boostrix; Adacel) 7yo and older 03/25/2010 Varicella live (Varivax) 12m o and older 02/13/2013,02/11/2000 Surgical History Surgery Date Site/Laterality Comments OTHER SURGICAL HISTORY 12/05 PROCEDURE: [place] CLITOROPLASTY INTERSEX STATE; COMMENT: due to CAH Medical History Medical History Date Comments Congenital adrenal hyperplas ia (CMS/HCC V24) DX:Congenital adrenal hyperp lasia (HCC); COMMENT: dx'd around age of 3 due to premature puberty Seasonal allergies DX:Seasonal a llergies; COMMENT: actifed prn Eczema DX:Eczema; COMME NT: oils or lotions; no steroid creams Family History Medical History Relation Name Comments Other cancer Maternal Grandfather Bile du ct Hypertension Mother Allergies Mother's side Diabetes Mother's side MGGM Eczema Mother's side MGF Hypertension Mother's side MGF Other cancer Mother's side MGGF- colo n ca Breast cancer Neg Hx Ovarian cancer Neg Hx Relation Name Status Comments Brother Alive Renato Guerrero 01/25 Father Alive George Guerrero Maternal Grandfather Mother Alive Jerrica Thumm Mother's side Social History Tobacco Use Types Packs/Day Years Used Date Smoking Tobacco: Every Day Smokeless Tobacco: Never Alcohol Use Standard Drinks/Week Comments Yes 0 (1 standard drink = 0.6 oz pur e alcohol) Comments Unknown Sex and Gender Information Value Date Recorded Sex Assigned at Not on file Legal Sex Female 8:17 AM EST Gender Identity Not on file Sexual Orientation Not on file Obstetrics History Last Filed Vital Signs Vital Sign Reading Time Taken Comments Blood Pressure 126/66 11/17/2023 7:49 AM EDT Pulse 81 11/17/2023 7:49 AM EDT Temperature - - Respiratory Rate - - Oxygen Saturation - - Inhaled Oxygen Concentration - - Weight 75.8 kg (167 lb) 11/17/2023 7:49 AM EDT Height 154.9 cm (5' 1 ) 11/17/2023 7:49 AM EDT Body Mass Index 31.55 11/17/2023 7:49 AM EDT Plan of Treatment Health Maintenance Due Date Last Done Comments Pneumococcal Vaccine: Pediatrics (0 to 5 Years) and At-Risk Patients (6 to 49 Years) (1 of 2 - PCV) 2017 HIV Screening 04/04/2022 Hepatitis C Screening 04/04/2022 Social Influencers of Health Screening 04/04/2022 Depression Screening 04/26/2024 Cervical Cancer Screening: Pap Smear 10/17/2024 10/17/2021, 10/17/2021, 10/17/2021 COVID-19 Vaccine ( season) 2024 Influenza Vaccine (#1) 2024 6, 03/07/2014, 02/02/2013, Additional history exists Cholesterol Screening (Lipid Panel) 06/02/2026 06/02/2021, 06/02/2021 DTaP,Tdap,and Td Vaccines (8 - Td or Tdap) 05/26/2031 05/26/2021, 03/25/2010, 09/26/2002, Additional history exists RSV Immunization Adult Patients (1 - 1-dose 75+ series) 2073 Hepatitis B Vaccines Completed 02/17/1999, 1998, 1998 HIB Vaccines Completed 08/27/1999, 01/25, 1998, Additional history exists MMR Vaccines Completed 04/25/2000, 08/27/1999 IPV Vaccines Completed 09/26/2002, 06/1999, 08/27/1999, Additional history exists Hepatitis A Vaccines Completed 12/30/2007, 10/22/19 05 Varicella Vaccines Completed 02/13/2013, 02/11/2000 HPV Vaccines Completed 08/21/2013, 03/27, 02/13/2013 Meningococcal ACWY Vaccine Completed 07/11/2015, Gonorrhea/Chlamydia Screening Discontinued 10/17/2021 Meningococcal B Vaccine Aged Out No l onger eligible based on patient's age to complete this topic RSV Immunization Patients Under 20 months Aged Out No longer eligible based on patient's age to complete this topic Procedures Procedure Name Priority Date/Time Associated Diagnosis Comments PAP SMEAR Routine 10/17/2021 GONORRHEA/CHLAMYDIA SCRREENING Routine 10/17/2021 LIPID PANEL Routine 06/02/2021 from Last 3 Months or Most Recently Relevant to Health Maintenance Results * Gonorrhea/Chlamydia Screening (10/17/2021) Gonorrhea/Chla mydia Screening Abstracted Historical Provider MD HEALTH MAINTENANCE Final Result * Pap smear (10/17/2021) 10/17/2021 Narrative HISTORICAL TESTING LAB RESULTING AGENCY - 10/28/2021 9:30 AM EDT [id number] THINPREP PAP, IMAGED: NEGATIVE FOR SQUAMOUS INTRAEPITHELIAL LESION AND MALIGNANCY . GABY MOULTON(ASCP) (CASE ELECTRONICALLY SIGNED 10 26 2021) ADEQUACY: SATISFACTORY ENDOCERVICAL/TRANSFORMATION ZONE COMPONENT PRESENT. SOURCE: THINPREP PAP HPV IF ASCUS, CERVICAL, IMAGED CLINICAL INFORMATION: HPV IF DIAGNOSIS OF ASCUS. [[id number]] Alessia Banks CNM LAB CYTOLOGY ORDERABLES Final R esult HISTORICAL TESTING LAB RESULTING AGENCY * Lipid panel (06/02/2021) LDL/HDL Ratio 2 0 - 4 Triglycerides 64 0 - 150 mg/dL Cholesterol 175 0 - 200 mg/dL HDL 88 >=40 mg/dL LDL Cholesterol 75 0 - 100 mg/dL Blood Venous blood specimen / Unknown Historical Provider LAB BLOOD ORDERABLES Jennifer l Result from Last 3 Months or Most Recently Relevant to Health Maintenance Insurance [employer] Care Teams Ski Lift Operator Relationship Specialty Start Date End Date Lorena Lemus MD [id number] [place] [id number] PCP - General Internal Medicine 02/12/22
== END 2025-03-08 10:54 | disposition home or self-care (01) ==
LOC: HO.HWS 09:57
PROVIDERS: PCP Internal Medicine; Visit Provider Obstetrics & Gynecology
DX: N83.299 Other ovarian cyst, unspecified side (principal); N73.0 Acute parametritis and pelvic cellulitis
CPT/HCPCS: 99213

== ENCOUNTER → 2025-03-08 09:56 | Outpatient (BNVA) | payer OTHER, SELFPAY | PROVIDERS: PCP Internal Medicine; Visit Provider Obstetrics & Gynecology | DX: N83.291 Other ovarian cyst, right side (principal); N73.0 Acute parametritis and pelvic cellulitis | CPT/HCPCS: 99212 ==